=== PATIENT | male | born 1935 | race Caucasian/White ===

== ENCOUNTER 2019-07-09 12:33 | Outpatient (CLI) | payer MEDICARE, OTHER ==
[~2019-07-09 12:33] MED LIST: OXYC1TAB7 PO; TIZA2TAB2 PO; TURMERIC; TURMERIC PO; [UNRECOGNIZED DRUG - OTHER] PO
[2019-07-09 13:14] LABS: BASOPHILS # (AUTO) 0.03 x10^3/uL (0-0.1); BASOPHILS % (AUTO) 1 % (0-1); EOSINOPHILS # (AUTO) 0.11 x10^3/uL (0-0.4); EOSINOPHILS % (AUTO) 2 % (1-7); LYMPHOCYTES # (AUTO) 1.89 x10^3/uL (1-3.4); LYMPHOCYTES % (AUTO) 34 % (22-44); MD NO; MEAN CORPUSCULAR HEMOGLOBIN 29.7 pg (27.5-34.5); MEAN CORPUSCULAR HGB CONC 33.4 g/dL (33.2-36.2); MEAN CORPUSCULAR VOLUME 89.1 fL (81-97); MEAN PLATELET VOLUME 7.6 fL (7.4-10.4); MONOCYTES % (AUTO) 11 % (2-9); NEUTROPHILS # (AUTO) 2.96 x10^3/uL (1.8-6.8); NEUTROPHILS % (AUTO) 53 % (42-75); PLATELET COUNT 328 x10^3/uL (130-400); RED BLOOD COUNT 4.72 x10^6/uL (4.38-5.82); RED CELL DISTRIBUTION WIDTH 14.2 % (9.4-14.8)
[2019-07-09] MEDS ORDERED: MULT-658 PO (13:19)
[2019-07-09 13:22] LABS: INTERNATIONAL NORMALIZED RATIO 0.96 (0.93-1.1); PROTHROMBIN TIME 10.2 Seconds (9.6-11.5)
[2019-07-09 13:24] LABS: ANION GAP 7 mmol/L (5-15); CALCIUM 9.1 mg/dL (8.5-10.1); CHLORIDE 103 mmol/L (98-107); CREATININE 0.83 mg/dL (0.7-1.3)
== END 2019-07-09 23:59 | disposition home or self-care (01) ==
LOC: STAR 12:33
PROVIDERS: ATTEND Orthopaedic Surgery
DX: Z01.818 Encounter for other preprocedural examination (principal); M17.12 Unilateral primary osteoarthritis, left knee
CPT/HCPCS: 36415; 80048; 83036; 85025; 85610; 85730; 87081; 93005

== ENCOUNTER 2019-07-21 09:53 | Observation (INO) | payer MEDICARE, OTHER ==
[~2019-07-21] VITALS: Ht 180.3 cm; Wt 93.0 kg
[~2019-07-21 09:53] MED LIST changes: +ACETAMINOPHEN 650 MG/20.3 ML UDC PO PRN; +BISACODYL 10 MG SUPP PR PRN; +DIPHENHYDRAMINE 25 MG CAPSULE PO PRN; +EPINEPHRINE 1 MG/ML, 1ML ONE; +HYDROcodone/APAP 5/325 TABLET PO PRN; +HYDROmorphone 1 MG/ML, 1ML INJ IV PRN; +KETOROLAC 60 MG/2 ML ONE; +MAGNESIUM HYDROXIDE 8%, 30ML UDC PO PRN; +MULT-658 PO; +ONDANSETRON 2MG/ML, 2ML IV PRN; +ONDANSETRON 4 MG TABLET PO PRN; +OXYcodone IR 5MG TABLET PO PRN; +ROPIvacaine/PF 0.5%, 30 ML ONE; +SCOPOLAMINE PATCH, 1.5MG PATCH.TD72 TD ONE; +SENNA/DOCUSATE TABLET PO PRN; +SODIUM CHLORIDE 0.9% 50 ML ONE; +TRANEXAMIC ACID 100 MG/ML, 10ML ONE; +VANCOMYCIN 1,000 MG ONE; +ZOLPIDEM 5MG TABLET PO PRN
[2019-07-21] MEDS ORDERED: LACTATED RINGERS 1,000 ML IV SCH (10:17)
[2019-07-21] MEDS ORDERED: GABAPENTIN 300 MG CAPSULE PO ONE (10:30)
[2019-07-21] MEDS ORDERED: ROPIvacaine/PF 0.2%, 20 ML ONE (10:32)
[2019-07-21] MEDS ORDERED: PROPOFOL 10 MG/ML, 20ML ONE (10:34)
[2019-07-21] MEDS ORDERED: NEOSTIGMINE 1 MG/ML, 10ML ONE (10:34)
[2019-07-21] MEDS ORDERED: SUCCINYLCHOLINE 20 MG/ML, 10ML ONE (10:34)
[2019-07-21] MEDS ORDERED: FENTANYL PF 250 MCG/5ML ONE ×2 (10:34→12:07)
[2019-07-21] MEDS ORDERED: ROCURONIUM 10MG/ML,5ML ONE (10:34)
[2019-07-21] MEDS ORDERED: GLYCOPYRROLATE 0.2MG/1ML, 5ML ONE (10:34)
[2019-07-21] MEDS ORDERED: CEFAZOLIN 1,000 MG ONE (10:34)
[2019-07-21] MEDS ORDERED: ACETAMINOPHEN 500 MG TABLET PO ONE (11:00)
[2019-07-21] MEDS ORDERED: ONDANSETRON 2MG/ML, 2ML IV PRN (12:00)
[2019-07-21] MEDS ORDERED: FENTANYL PF 100 MCG/2ML IV PRN (12:00)
[2019-07-21] MEDS ORDERED: OXYcodone 5 MG/5 ML ORAL.SOL UDC PO PRN (12:00)
[2019-07-21] MEDS ORDERED: HYDROmorphone 2 MG/ML, 1ML IVPush PRN (12:00)
[2019-07-21] MEDS ORDERED: hydrALAzine 20 MG/ML, 1ML IV PRN (12:00)
[2019-07-21] MEDS ORDERED: MEPERIDINE/PF 25MG/ML,1ML IVPush PRN (12:00)
[2019-07-21] MEDS ORDERED: MORPHINE SULFATE 4 MG/ML, 1ML IVPush PRN (12:00)
[2019-07-21] MEDS ORDERED: LABETALOL 5MG/ML, 20ML IV PRN (12:00)
[2019-07-21] MEDS ORDERED: hydrALAzine 20 MG/ML, 1ML ONE (13:34)
[2019-07-21] MEDS: NS + 20MEQ KCL 1,000 ML IV SCH (17:41)
[2019-07-21] MEDS: ASPIRIN 81 MG TABLET EC PO SCH (17:41)
[2019-07-21 19:29] VITALS: BP 121/66
[2019-07-21] MEDS: CEFAZOLIN PMX 2GM/50ML 50 ML IVPB SCH (19:50)
[2019-07-21] MEDS: DOCUSATE 100 MG CAPSULE PO SCH (19:50)
[2019-07-22 00:11] VITALS: BP 112/57
[2019-07-22] MEDS: NS + 20MEQ KCL 1,000 ML IV SCH (03:00)
[2019-07-22] MEDS: CEFAZOLIN PMX 2GM/50ML 50 ML IVPB SCH (04:00)
[2019-07-22 04:04] VITALS: BP 123/66
[2019-07-22] MEDS: ASPIRIN 81 MG TABLET EC PO SCH (05:52)
[2019-07-22] MEDS ORDERED: DEXAMETHASONE 4 MG/ML, 1ML IVPush SCH (06:00)
[2019-07-22] MEDS ORDERED: TAMSULOSIN 0.4 MG CAP.ER.24H PO ONE (07:00)
[2019-07-22 07:46] VITALS: BP 125/59
[2019-07-22] MEDS: DOCUSATE 100 MG CAPSULE PO SCH (08:50)
[2019-07-22] MEDS ORDERED: TRAM50TA2 PO (11:32)
[2019-07-22] MEDS ORDERED: OXYC5CAP2 PO (11:32)
[2019-07-22] MEDS ORDERED: MELO7.5T31 PO (11:33)
[2019-07-22 12:30] VITALS: BP 112/61
== END 2019-07-22 13:39 | disposition home or self-care (01) ==
LOC: OUT 09:53 → 4NE 14:25 → OUT 19:59 → DCLOUNGE 07-22 13:34
PROVIDERS: ADMIT Orthopaedic Surgery; ATTEND Orthopaedic Surgery
DX: M17.12 Unilateral primary osteoarthritis, left knee (principal); R33.9 Retention of urine, unspecified; Z79.899 Other long term (current) drug therapy
CPT/HCPCS: 27447; 36415; 85014; 85018; 96365; 96366; 97161; 97165; C1713; C1776; G0378; J0171; J0330; J0360; J0690; J1885; J2704; J2710; J2795; J3010; J3370; J3480; J7120

== ENCOUNTER → 2019-07-26 | Outpatient (CLI) | payer MEDICARE ==
[~2019-07-26] MED LIST changes: -ACETAMINOPHEN 650 MG/20.3 ML UDC PO PRN; -BISACODYL 10 MG SUPP PR PRN; -DIPHENHYDRAMINE 25 MG CAPSULE PO PRN; -EPINEPHRINE 1 MG/ML, 1ML ONE; -HYDROcodone/APAP 5/325 TABLET PO PRN; -HYDROmorphone 1 MG/ML, 1ML INJ IV PRN; -KETOROLAC 60 MG/2 ML ONE; -MAGNESIUM HYDROXIDE 8%, 30ML UDC PO PRN; +MELO7.5T31 PO; -ONDANSETRON 2MG/ML, 2ML IV PRN; -ONDANSETRON 4 MG TABLET PO PRN; +OXYC5CAP2 PO; -OXYcodone IR 5MG TABLET PO PRN; -ROPIvacaine/PF 0.5%, 30 ML ONE; -SCOPOLAMINE PATCH, 1.5MG PATCH.TD72 TD ONE; -SENNA/DOCUSATE TABLET PO PRN; -SODIUM CHLORIDE 0.9% 50 ML ONE; +TRAM50TA2 PO; -TRANEXAMIC ACID 100 MG/ML, 10ML ONE; -VANCOMYCIN 1,000 MG ONE; -ZOLPIDEM 5MG TABLET PO PRN
== END | disposition home or self-care (01) ==
LOC: CFH 14:10
PROVIDERS: ATTEND Family Medicine
DX: R22.42 Localized swelling, mass and lump, left lower limb (principal); R05 Cough